=== PATIENT | female | born 1985 | race Caucasian/White ===

== ENCOUNTER → 2020-10-25 | Outpatient (CLI) | payer OTHER, BC | LOC: KOH-I 14:47 | DX: M25.572 Pain in left ankle and joints of left foot (principal); M79.672 Pain in left foot | CPT/HCPCS: 73610; 73630 ==

== ENCOUNTER → 2020-11-01 | Outpatient (CLI) | payer OTHER, BC | LOC: KOH-I 16:00 | DX: M25.572 Pain in left ankle and joints of left foot (principal); G89.29 Other chronic pain; M79.89 Other specified soft tissue disorders | CPT/HCPCS: 73721 ==